=== PATIENT | male | born 1940 | race Caucasian/White ===

== ENCOUNTER 2016-07-02 11:07 | Outpatient (CLI) | payer MEDICARE, OTHER | END 2016-07-02 11:08 | disposition home or self-care (01) | DX: J43.9 Emphysema, unspecified (principal); R06.02 Shortness of breath ==

== ENCOUNTER 2016-11-06 10:33 | Outpatient (CLI) | payer MEDICARE, OTHER ==
--- NOTE | 2016-11-06 14:39 | XRAY Report ---
RIGHT HIP AND PELVIS: 11/06/2016 CLINICAL INDICATION: Persistent pain. FINDINGS: Frontal view of the hips and pelvis and frogleg lateral view of the right hip demonstrate mild osteoarthritis. There is no evidence of acute fracture or dislocation. No radiopaque foreign b sebastian is seen in the soft tissues. IMPRESSION: MILD OSTEOARTHRITIS. NO EVIDENCE OF FRACTURE. JOB #: [id number] EXT JOB #:[id number]
== END 2016-11-06 10:34 | disposition home or self-care (01) ==
LOC: DI 10:33
PROVIDERS: ATTEND Internal Medicine
DX: M16.11 Unilateral primary osteoarthritis, right hip (principal)

== ENCOUNTER 2018-03-05 08:01 | Outpatient (CLI) | payer MEDICARE, OTHER ==
--- NOTE | 2018-03-05 15:53 | Ultrasound Report ---
Reason: BLADDER-NECK OBSTRUCTION Procedure Date: 03/05/2018 Accession Number: [id number] / [id number] Procedure: US - Bladder CPT Code: FULL RESULT: EXAM: BLADDER ULTRASOUND EXAM DATE: 03/05/2018 09:08 AM. CLINICAL HISTORY: BLADDER-NECK OBSTRUCTION. Urinary frequency at night with decrease in stream force. COMPARISON: HIP W/PELVIS 2-3V RT 11/06/2016. TECHNIQUE: Real-time scanning was performed with static images obtained. FINDINGS: Bilateral jets seen. The prevoid bladder volume was 365 cc. The postvoid bladder volume was 181 cc. No bladder wall thickening or trabeculation visualized. The prostate measures approximately 4.4 x 3.8 x 3.9 cm. Other: None. IMPRESSION: 1. Post void residual measuring approximately 181 cc. 2. No bladder wall thickening, trabeculation, or other abnormality visualized. 3. Mildly enlarged prostate. RADIA
== END 2018-03-05 08:02 | disposition home or self-care (01) ==
LOC: DI 08:01
PROVIDERS: ATTEND Internal Medicine
DX: N32.0 Bladder-neck obstruction (principal); N40.0 Benign prostatic hyperplasia without lower urinary tract symptoms
CPT/HCPCS: 76857

== ENCOUNTER 2019-04-08 17:20 | Outpatient (CLI) | payer MEDICARE, OTHER | END 2019-04-08 17:21 | disposition critical access hospital (66) | LOC: EMS 17:20 | PROVIDERS: ATTEND Surgery | DX: R53.1 Weakness (principal); R46.4 Slowness and poor responsiveness | CPT/HCPCS: A0425; A0427 ==

== ENCOUNTER 2019-04-08 17:57 | Emergency (ER) | payer MEDICARE, OTHER ==
[2019-04-08] MEDS ORDERED: IPRATROPIUM/ALBUTEROL 3 ML NEB INH STA (18:07)
--- NOTE | 2019-04-08 18:11 | ED Physician Documentation ---
History of Present Illness - Stated complaint Stated Complaint: TREMORS, WEAKNESS - History obtained from History obtained from: Patient, Family, EMS - History of Present Illness Timing: Today Pain level max: 0 Pain level now: 0 - Additonal information Additional information: 78-year-old male with a history of dementia, lives at home with his . states that he has been acting differently than usual. Now complaining that he has to pee. He is normally on oxygen 24/7, 2-1/2 to 3 L. He was not on his oxygen today. No recent illnesses. No vomiting. No diarrhea or constipation. Nothing makes this better or worse Review of Systems Unable to obtain: Dementia Constitutional: denies: Fever Cardiac: denies: Chest pain / pressure Respiratory: denies: Cough GI: denies: Vomiting Skin: denies: Rash Musculoskeletal: denies: Neck pain, Back pain Neurologic: denies: Headache PD PAST MEDICAL HISTORY - Past Medical History Cardiovascular: Hypertension Respiratory: COPD Endocrine/Autoimmune: Type 1 diabetes : Benign prostate hypertrophy Psych: None Musculoskeletal: None - Past Surgical History General: Colonoscopy - Present Medications Home Medications: Ambulatory Orders Medication Instructions Recorded Confirmed Aspirin [Aspirin EC] 81 mg PO DAILY 07/01/15 02/05/16 Cetirizine [ZyrTEC] 10 mg PO DAILY 07/01/15 02/05/16 Levothyroxine [Synthroid] 112 mcg PO DAILY 07/01/15 02/05/16 Lisinopril 20 mg PO DAILY 07/01/15 02/05/16 Metformin HCl 1,000 mg PO BID 07/01/15 02/05/16 Sildenafil Citrate [Viagra] 1 tab PO ONCE 07/01/15 02/05/16 Simvastatin 20 mg PO DAILY 07/01/15 02/05/16 Tamsulosin [Flomax] 0.4 tab PO DAILY 07/01/15 02/05/16 Tiotropium [place] [Spiriva] 1 inh NS DAILY 07/01/15 02/05/16 Albuterol Sulfate [Ventolin Hfa] 1 puffs PO DAILY PRN 01/21/16 02/05/16 Fluticasone 44 Mcg [Flovent] 1 puffs PO BID 01/21/16 02/05/16 - Allergies Allergies/Adverse Reactions: Allergies Allergy/AdvReac Type Severity Reaction Status Date / Time Sulfa (Sulfonamide Allergy Rash Verified 04/08/19 18:09 Antibiotics) - Social History Does the pt smoke?: No Smoking Status: Former smoker Does the pt drink ETOH?: No Does the pt have substance abuse?: No PD ED PE NORMAL - Vitals Vital signs reviewed: Yes - General General: Other (Alert, restless) - HEENT HEENT: Moist mucous membranes, Pharynx benign - Neck Neck: Supple, no meningeal sign - Cardiac Cardiac: Other (Tachycardic) - Respiratory Respiratory: Other (Diminished breath sounds with wheezing bilaterally) - Abdomen Abdomen: Soft (Soft abdomen other than a firm lower abdomen, no tenderness that I can discern. No peritoneal signs) - Back Back: No spinal TTP - Derm Derm: Warm and dry - Extremities Extremities: No deformity, No tenderness to palpate - Neuro Neuro: No: Other (alert) Results - Vitals Vitals: Vital Signs - 24 hr 04/08/19 04/08/19 04/08/19 18:10 18:16 18:23 Temperature 36.9 C Heart Rate 130 H 136 H 143 H Respiratory 24 16 18 Rate Blood Pressure 184/108 H O2 Saturation 100 98 04/08/19 04/08/19 04/08/19 19:10 19:30 20:00 Temperature Heart Rate 130 H 125 H 124 H Respiratory 17 20 18 Rate Blood Pressure 182/98 H 172/110 H 129/80 O2 Saturation 100 100 98 04/08/19 04/08/19 04/08/19 20:30 21:00 21:30 Temperature Heart Rate 117 H 133 H 114 H Respiratory 16 16 18 Rate Blood Pressure 133/78 H 133/78 H 165/80 H O2 Saturation 100 100 94 04/08/19 04/08/19 22:00 22:30 Temperature Heart Rate 106 H 107 H Respiratory 16 18 Rate Blood Pressure 147/75 H 138/84 H O2 Saturation 95 97 Oxygen O2 Source Room air - EKG (time done) 1808 Rate: Rate (enter#) (132) Rhythm: Sinus tachycardia [place]: Normal Intervals: Normal [place] QRS: Normal Ischemia: Normal ST segments, Q waves (II, III, aVF) - Labs Labs: Laboratory Tests 04/08/19 04/08/19 04/08/19 18:00 18:20 18:20 WBC 11.9 H RBC 3.83 L Hgb 12.7 L Hct 37.4 L MCV 97.7 H MCH 33.2 H MCHC 34.0 RDW 12.9 Plt Count 239 MPV 9.3 Neut # (Auto) 10.4 H Lymph # (Auto) 1.0 L [place] # (Auto) 0.4 Eos # (Auto) 0.0 Baso # (Auto) 0.0 Absolute Nucleated RBC 0.00 Nucleated RBC % 0.0 Sodium 127 L Potassium 4.1 Chloride 90 L Carbon Dioxide 26 Anion Gap 11.0 BUN 15 Creatinine 0.8 Estimated GFR (MDRD) 93 Glucose 194 H Calcium 10.0 Total Bilirubin 0.8 AST 22 ALT 18 Alkaline Phosphatase 47 Troponin I High Sens B-Natriuretic Peptide Total Protein 7.8 Albumin 4.5 Globulin 3.3 Albumin/Globulin Ratio 1.4 Lipase 26 Urine Color YELLOW Urine Clarity CLEAR Urine pH 7.5 Ur Specific [place] 1.015 Urine Protein 30 H Urine Glucose (UA) NEGATIVE Urine Ketones TRACE Urine Occult Blood TRACE-INTA Urine Nitrite NEGATIVE Urine Bilirubin NEGATIVE Urine Urobilinogen 0.2 (NORMAL) Ur Leukocyte Esterase NEGATIVE Urine RBC 0-5 Urine WBC 0-3 Ur Squamous Epith Cells RARE Squamous Urine Bacteria Rare Ur Microscopic Review INDICATED Urine Culture Comments NOT INDICATED 04/08/19 04/08/19 18:20 18:20 WBC RBC Hgb Hct MCV MCH MCHC RDW Plt Count MPV Neut # (Auto) Lymph # (Auto) [place] # (Auto) Eos # (Auto) Baso # (Auto) Absolute Nucleated RBC Nucleated RBC % Sodium Potassium Chloride Carbon Dioxide Anion Gap BUN Creatinine Estimated GFR (MDRD) Glucose Calcium Total Bilirubin AST ALT Alkaline Phosphatase Troponin I High Sens 6.5 B-Natriuretic Peptide 38 Total Protein Albumin Globulin Albumin/Globulin Ratio Lipase Urine Color Urine Clarity Urine pH Ur Specific [place] Urine Protein Urine Glucose (UA) Urine Ketones Urine Occult Blood Urine Nitrite Urine Bilirubin Urine Urobilinogen Ur Leukocyte Esterase Urine RBC Urine WBC Ur Squamous Epith Cells Urine Bacteria Ur Microscopic Review Urine Culture Comments - Rads (name of study) head CT Radiology: Prelim report reviewed, EMP read contemporaneously, See rad report (No acute abnormality) chest xray Radiology: Prelim report reviewed, EMP read contemporaneously, See rad report (No acute abnormality) PD MEDICAL DECISION MAKING - ED course Complexity details: reviewed results, re-evaluated patient, considered differential, d/w patient, d/w family ED course: Patient with significant acute urinary retention. A Horowitz catheter was placed and approximately 2-1/2 to 3 L of urine was drained. He then had a very large bowel movement. No acute findings on head CT. He was reported to have a headache earlier in the day. No acute findings on chest x-ray. Breathing improved with nebulizer treatment and he was placed back on oxygen. He was given a small dose of Haldol and his restlessness resolved. states this is normal heart rate is 90 to low 100's. Patient appears to be at his baseline. We will have him follow-up with his doctor for further care. Patient and family counseled regarding signs and symptoms for which I believe and urgent re- evaluation would be necessary. Patient with good understanding of and agreement to plan and is comfortable going home at this time This document was made in part using voice recognition software. While efforts are made to proofread this document, sound alike and grammatical errors may occur. Departure - Departure Disposition: 01 Home, Self Care Clinical Impression: Urinary retention Condition: Good Instructions: ED Catheter Care Lor, ED Retention Urinary Male Follow-Up: Néstor Sanchez MD [Primary Care Provider] - Within 3 Days Comments: Return if you worsen. Follow-up with Dr. Sanchez for further care. He may refer you to urology. Leave the catheter in place. He should also discuss with Dr. Sanchez in his office options for when his dementia worsens and getting part-time caregivers, respite caregivers and other options before they are desperately needed. Discharge Date/Time: 04/08/19 22:41
[2019-04-08 18:24] LABS: BASOPHILS % (AUTO) 0.3 %; EOSINOPHILS % (AUTO) 0.3 %; HGB - HEMOGLOBIN 12.7 g/dL (14.0-18.0); MEAN CORPUSCULAR HEMOGLOBIN 33.2 pg (27.0-31.0); MEAN CORPUSCULAR VOLUME 97.7 fL (80.0-94.0); MEAN PLATELET VOLUME 9.3 fL (7.4-11.4); MONOCYTES # (AUTO) 0.4 10^3/uL (0.0-1.0); MONOCYTES % (AUTO) 3.2 %; NEUTROPHILS # (AUTO) 10.4 10^3/uL (1.5-6.6); NEUTROPHILS % (AUTO) 87.9 %; PLT - PLATELET COUNT 239 10^3/uL (130-450); RED BLOOD COUNT 3.83 10^6/uL (4.70-6.10); RED CELL DISTRIBUTION WIDTH 12.9 % (12.0-15.0); WHITE BLOOD COUNT 11.9 x10^3/uL (4.8-10.8)
[2019-04-08 18:28] LABS: BILIRUBIN,URINE NEGATIVE (NEGATIVE); GLUCOSE, URINE (UA) NEGATIVE (NEGATIVE); KETONES,URINE (UA) TRACE mg/dL (NEGATIVE); LEUKOCYTE ESTERASE, URINE NEGATIVE (NEGATIVE); NITRITE,URINE NEGATIVE (NEGATIVE); OCCULT BLOOD,URINE TRACE-INTA (NEGATIVE); PH,URINE 7.5 PH (5.0-7.5); PROTEIN,URINE 30 mg/dL (NEGATIVE); UROBILINOGEN,URINE 0.2 (NORMAL) E.U./dL (NORMAL)
[2019-04-08 18:36] LABS: CLARITY,URINE CLEAR (CLEAR)
[2019-04-08 18:37] LABS: ALBUMIN 4.5 g/dL (3.2-5.5); ALBUMIN/GLOBULIN RATIO 1.4 (1.0-2.2); BILIRUBIN,TOTAL 0.8 mg/dL (0.2-1.0); CREATININE 0.8 mg/dL (0.6-1.2); TOTAL PROTEIN 7.8 g/dL (6.7-8.2)
[2019-04-08 18:46] LABS: BACTERIA,URINE Rare /HPF (None Seen); RBC,URINE 0-5 /HPF (0-5); SQUAMOUS EPITHELIAL CELL,UR RARE Squamous (<= Few)
--- NOTE | 2019-04-08 19:20 | CT Report ---
Reason: ALOC Procedure Date: 04/08/2019 Accession Number: [id number] / [id number] Procedure: CT - HEAD WO CPT Code: FULL RESULT: EXAM: CT HEAD EXAM DATE: 04/08/2019 07:03 PM. CLINICAL HISTORY: ALOC. COMPARISON: HEAD W/O 07/01/2015 9:57 AM. TECHNIQUE: Multiaxial CT images were obtained from the foramen magnum to the vertex. Reformats: Sagittal and coronal. IV contrast: None. In accordance with CT protocol optimization, one or more of the following dose reduction techniques were utilized for this exam: automated exposure control, adjustment of mA and/or KV based on patient size, or use of iterative reconstructive technique. FINDINGS: Parenchyma: No intraparenchymal hemorrhage. No evidence of mass, midline shift, or CT findings of acute infarction. Butcher-white differentiation is distinct. Diffuse chronic microangiopathic white matter changes are evident. Extraaxial Spaces: Normal for age. No subdural or epidural collections identified. Ventricles: The ventricles and cortical sulci are enlarged, consistent with age-related tissue loss. Sinuses and orbits: Imaged paranasal sinuses, orbits, and mastoids show no significant abnormality. Bones: No evidence of fracture or calvarial defect. Other: None. IMPRESSION: Generalized age-related cortical atrophic changes without evidence of acute intracranial abnormality. RADIA
--- NOTE | 2019-04-08 19:28 | XRAY Report ---
Reason: Chest Pain Procedure Date: 04/08/2019 Accession Number: [id number] / [id number] Procedure: XR - Chest 1 View X-Ray CPT Code: 70099 FULL RESULT: EXAM: CHEST RADIOGRAPHY EXAM DATE: 04/08/2019 07:10 PM. CLINICAL HISTORY: Chest pain. COMPARISON: CHEST 2 VIEW PA/LAT 07/02/2016 11:35 AM. TECHNIQUE: 1 view. FINDINGS: Lungs/Pleura: The lungs are hyperinflated noting hyperlucent upper lobes. No confluent lung consolidation. No pleural effusion or pneumothorax. Mediastinum: Within exam limitations, the cardiomediastinal contour is normal. Other: None. IMPRESSION: Emphysema. No acute airspace disease. RADIA
[2019-04-08] MEDS ORDERED: SODIUM CHLORIDE 0.9% 1,000 ML IV ONE (19:56)
[2019-04-08] MEDS ORDERED: HALOPERIDOL 5 MG/ML VIAL IVP STA (21:10)
[2019-04-08 22:39] VITALS: BP 138/84
== END 2019-04-08 22:41 | disposition home or self-care (01) ==
LOC: EDUNIT# → ED 17:57
DX: R33.9 Retention of urine, unspecified (principal); R53.1 Weakness; R00.0 Tachycardia, unspecified; R45.1 Restlessness and agitation; R51 Headache; F03.90 Unspecified dementia, unspecified severity, without behavioral disturbance, psychotic disturbance, mood disturbance, and anxiety; J44.9 Chronic obstructive pulmonary disease, unspecified; Z87.891 Personal history of nicotine dependence; I10 Essential (primary) hypertension; E10.9 Type 1 diabetes mellitus without complications; Z79.82 Long term (current) use of aspirin
CPT/HCPCS: 36415; 51702; 70450; 71045; 80053; 81001; 81003; 83690; 83880; 84484; 85025; 87086; 93005; 94640; 96361; 96374; 99284

== ENCOUNTER 2019-07-06 09:27 | Outpatient (CLI) | payer MEDICARE, OTHER ==
--- NOTE | 2019-07-06 10:19 | XRAY Report ---
Reason: PAIN IN THORACIC SINE Procedure Date: 07/06/2019 Accession Number: [id number] / [id number] Procedure: XRS - Thoracic Spine 2 View CPT Code: Final Report FULL RESULT: EXAM: THORACIC SPINE RADIOGRAPHY EXAM DATE: 07/06/2019 09:57 AM. CLINICAL HISTORY: PAIN IN THORACIC SINE. COMPARISON: CHEST 2 VIEW 07/06/2019 9:53 AM XR CHEST PA AND LAT 06/08/2012 4:25 PM. TECHNIQUE: 2 views. FINDINGS: Alignment: Normal. No spondylolisthesis or scoliosis. Bones: Mild wedging T11 Disks: Scattered small osteophytes. Soft Tissues: Honeycombing. IMPRESSION: Mild DJD Mild wedging T11 RADIA
--- NOTE | 2019-07-06 10:22 | XRAY Report ---
Reason: COUGH Procedure Date: 07/06/2019 Accession Number: [id number] / [id number] Procedure: XRS - Chest 2 View X-Ray CPT Code: 23179 Final Report FULL RESULT: EXAM: CHEST RADIOGRAPHY EXAM DATE: 07/06/2019 09:57 AM. CLINICAL HISTORY: COUGH. COMPARISON: CHEST 1 VIEW 04/08/2019 7:00 PM CHEST 12/14/2008 11:08 AM. TECHNIQUE: 2 views. FINDINGS: Lungs/Pleura: Possible nodular density projected over the right anterior fifth rib where it crosses over a posterior rib . Pulmonary fibrosis, peripheral honeycombing, bronchiectasis. Areas of scarring or atelectasis bilaterally. Hyperlucent hyperinflated lung yoo. Mediastinum: Heart and mediastinal contours are unremarkable. Other: None. IMPRESSION: 1. Pulmonary fibrosis. COPD 2. Possible right lung nodule. Recommend CT scan RADIA
== END 2019-07-06 09:28 | disposition home or self-care (01) ==
LOC: DI.S 09:27
PROVIDERS: ATTEND Registered Nurse
DX: M47.814 Spondylosis without myelopathy or radiculopathy, thoracic region (principal); M48.54XA Collapsed vertebra, not elsewhere classified, thoracic region, initial encounter for fracture; J44.9 Chronic obstructive pulmonary disease, unspecified; J84.10 Pulmonary fibrosis, unspecified
CPT/HCPCS: 71046; 72070

== ENCOUNTER 2019-07-10 10:43 | Outpatient (CLI) | payer MEDICARE, OTHER ==
--- NOTE | 2019-07-11 12:48 | CT Report ---
Reason: SOLITARY PULMONARY NODULE Procedure Date: 07/10/2019 Accession Number: [id number] / [id number] Procedure: CT - CHEST WO CPT Code: Final Report FULL RESULT: EXAM: CT CHEST EXAM DATE: 07/10/2019 11:15 AM. CLINICAL HISTORY: Solitary pulmonary nodule. COMPARISONS: CHEST 2 VIEW 07/06/2019 9:53 AM. TECHNIQUE: Routine helical CT imaging was performed through the chest. IV contrast: None. Reconstructions: Coronal and sagittal. In accordance with CT protocol optimization, one or more of the following dose reduction techniques were utilized for this exam: automated exposure control, adjustment of mA and/or KV based on patient size, or use of iterative reconstructive technique. FINDINGS: Lungs/Pleura: Advanced emphysematous changes throughout both lungs. Extensive bilateral bullous changes. No pneumothorax. There are multiple linear lucencies lateral right midlung compatible with scarring corresponding to the asymmetric density on recent chest x-ray. Elongated right basilar pulmonary calcinosis. Mild bilateral bronchial wall thickening with areas of mucus plugging. Mediastinum: No cardiomegaly or bulky mediastinal adenopathy. Moderate coronary arterial calcifications. Trace pericardial effusion. Bones: Elongated exostosis in between posterior right fifth and sixth ribs on coronal image 74. Small inferolateral right fifth rib exostosis on coronal image 30. Visualized Abdomen: Stomach is distended with fluid and ingested contents. Prominent hepatic flexure still partially imaged. Other: None. IMPRESSION: 1. Advanced emphysema with extensive bullous changes. Bilateral bronchial wall thickening may be related to bronchitis. 2. Asymmetric lateral right mid chest density on recent chest x-ray corresponds to areas of linear scarring. 3. No lung mass or suspicious lung nodule. 4. Trace pericardial effusion. RADIA
== END 2019-07-10 10:44 | disposition home or self-care (01) ==
LOC: DI 10:43
PROVIDERS: ATTEND Registered Nurse
DX: J43.9 Emphysema, unspecified (principal); J90 Pleural effusion, not elsewhere classified
CPT/HCPCS: 71250

== ENCOUNTER 2019-07-13 07:00 | Outpatient (CLI) | payer MEDICARE, OTHER ==
[2019-07-13 18:45] LABS: BASOPHILS % (AUTO) 0.3 %; EOSINOPHILS # (AUTO) 0.2 10^3/uL (0.0-0.7); EOSINOPHILS % (AUTO) 2.4 %; HGB - HEMOGLOBIN 11.5 g/dL (14.0-18.0); LYMPHOCYTES # (AUTO) 1.7 10^3/uL (1.5-3.5); LYMPHOCYTES % (AUTO) 16.5 %; MEAN CORPUSCULAR HEMOGLOBIN 32.9 pg (27.0-31.0); MEAN CORPUSCULAR HGB CONC 32.5 g/dL (32.0-36.0); MEAN CORPUSCULAR VOLUME 101.1 fL (80.0-94.0); MEAN PLATELET VOLUME 10.2 fL (7.4-11.4); MONOCYTES # (AUTO) 0.7 10^3/uL (0.0-1.0); MONOCYTES % (AUTO) 6.5 %; NEUTROPHILS # (AUTO) 7.4 10^3/uL (1.5-6.6); PLT - PLATELET COUNT 245 10^3/uL (130-450); RED CELL DISTRIBUTION WIDTH 13.3 % (12.0-15.0)
[2019-07-13 18:46] LABS: ALBUMIN 4.3 g/dL (3.2-5.5); ALBUMIN/GLOBULIN RATIO 1.6 (1.0-2.2); BILIRUBIN,TOTAL 0.4 mg/dL (0.2-1.0); CALCIUM 10.4 mg/dL (8.5-10.3); CREATININE 0.7 mg/dL (0.6-1.2)
== END 2019-07-13 23:59 | disposition home or self-care (01) ==
LOC: LAB.S 07:00
PROVIDERS: ATTEND Registered Nurse
DX: R53.83 Other fatigue (principal); J20.9 Acute bronchitis, unspecified
CPT/HCPCS: 36415; 80053; 85025

== ENCOUNTER 2019-07-21 10:25 | Outpatient (CLI) | payer MEDICARE, OTHER ==
[2019-07-21 17:45] LABS: BASOPHILS % (AUTO) 0.3 %; EOSINOPHILS # (AUTO) 0.3 10^3/uL (0.0-0.7); EOSINOPHILS % (AUTO) 2.9 %; HGB - HEMOGLOBIN 11.6 g/dL (14.0-18.0); LYMPHOCYTES # (AUTO) 1.5 10^3/uL (1.5-3.5); LYMPHOCYTES % (AUTO) 15.6 %; MEAN CORPUSCULAR HGB CONC 32.5 g/dL (32.0-36.0); MEAN CORPUSCULAR VOLUME 101.4 fL (80.0-94.0); MEAN PLATELET VOLUME 10.1 fL (7.4-11.4); MONOCYTES # (AUTO) 0.7 10^3/uL (0.0-1.0); MONOCYTES % (AUTO) 7.1 %; NEUTROPHILS # (AUTO) 6.9 10^3/uL (1.5-6.6); NEUTROPHILS % (AUTO) 73.7 %; PLT - PLATELET COUNT 233 10^3/uL (130-450); RED BLOOD COUNT 3.52 10^6/uL (4.70-6.10); RED CELL DISTRIBUTION WIDTH 13.6 % (12.0-15.0); WHITE BLOOD COUNT 9.3 x10^3/uL (4.8-10.8)
[2019-07-21 18:36] LABS: ALBUMIN 4.2 g/dL (3.2-5.5); ALBUMIN/GLOBULIN RATIO 1.6 (1.0-2.2); BILIRUBIN,TOTAL 0.6 mg/dL (0.2-1.0); CALCIUM 10.4 mg/dL (8.5-10.3); CREATININE 0.9 mg/dL (0.6-1.2); TOTAL PROTEIN 6.8 g/dL (6.7-8.2)
== END 2019-07-21 10:26 | disposition home or self-care (01) ==
LOC: LAB.S 10:25
PROVIDERS: ATTEND Registered Nurse
DX: J20.9 Acute bronchitis, unspecified (principal); D64.9 Anemia, unspecified
CPT/HCPCS: 36415; 80053; 82607; 82746; 83540; 84466; 85025

== ENCOUNTER 2020-10-14 16:42 | Outpatient (CLI) | payer MEDICARE, OTHER | END 2020-10-14 16:43 | disposition home or self-care (01) | LOC: COV 16:42 | PROVIDERS: ATTEND Dermatology MOHS-Micrographic Surgery | DX: Z01.812 Encounter for preprocedural laboratory examination (principal); Z20.822 Contact with and (suspected) exposure to COVID-19 ==

== ENCOUNTER 2020-10-24 11:21 | Emergency (ER) | payer MEDICARE, OTHER ==
[2020-10-24 11:46] LABS: BASOPHILS % (AUTO) 0.3 %; EOSINOPHILS # (AUTO) 0.2 10^3/uL (0.0-0.7); EOSINOPHILS % (AUTO) 1.8 %; HGB - HEMOGLOBIN 11.7 g/dL (14.0-18.0); LYMPHOCYTES # (AUTO) 0.9 10^3/uL (1.5-3.5); LYMPHOCYTES % (AUTO) 8.1 %; MEAN CORPUSCULAR HEMOGLOBIN 33.5 pg (27.0-31.0); MEAN CORPUSCULAR HGB CONC 34.4 g/dL (32.0-36.0); MEAN CORPUSCULAR VOLUME 97.4 fL (80.0-94.0); MEAN PLATELET VOLUME 9.2 fL (7.4-11.4); MONOCYTES # (AUTO) 0.8 10^3/uL (0.0-1.0); NEUTROPHILS # (AUTO) 9.6 10^3/uL (1.5-6.6); NEUTROPHILS % (AUTO) 82.5 %; PLT - PLATELET COUNT 237 10^3/uL (130-450); RED BLOOD COUNT 3.49 10^6/uL (4.70-6.10); RED CELL DISTRIBUTION WIDTH 13.2 % (12.0-15.0); WHITE BLOOD COUNT 11.6 x10^3/uL (4.8-10.8)
--- NOTE | 2020-10-24 11:59 | XRAY Report ---
PROCEDURE: Chest 1 View X-Ray INDICATIONS: Chest Pain TECHNIQUE: One view of the chest was acquired. COMPARISON: Chest radiographs 07/22/2019. CT chest 07/10/2019. FINDINGS: Surgical changes and devices: None. Lungs and pleura: The lungs are hyperexpanded with severe emphysematous changes bilaterally. No pleu ral effusion or pneumothorax. Mediastinum: Mediastinal contours appear normal. Heart size is normal. Mild aortic atherosclerotic calcifications. Bones and chest wall: No suspicious bony lesions. Overlying soft tissues appear unremarkable. IMPRESSION: Severe emphysematous changes. No acute cardiopulmonary abnormality identified. Reviewed by: Martir Orellana MD on 10/24/2020 11:57 AM PDT Approved by: Martir Orellana MD on 10/24/2020 11:57 AM PDT Station ID: [id number]
[2020-10-24 12:09] LABS: ALBUMIN 4.5 g/dL (3.2-5.5); ALBUMIN/GLOBULIN RATIO 1.5 (1.0-2.2); BILIRUBIN,TOTAL 0.5 mg/dL (0.2-1.0); CALCIUM 10.7 mg/dL (8.5-10.3); CREATININE 0.8 mg/dL (0.6-1.2); POTASSIUM 4.5 mmol/L (3.5-5.0); TOTAL PROTEIN 7.6 g/dL (6.7-8.2)
[2020-10-24 12:11] LABS: INR 1.1 (0.8-1.2); PT - PROTHROMBIN TIME 12.1 secs (9.9-12.6)
--- NOTE | 2020-10-24 12:48 | ED Physician Documentation ---
PD HPI CHEST PAIN - Stated complaint Stated Complaint: CHEST PX - Chief complaint Chief Complaint: Cardiac - History obtained from History obtained from: Patient - Additional information Additional information: Patient comes emergency department after being sent by the walk-in clinic for chief complaint of chest tightness. Patient states that he had a fairly busy day yesterday and that throughout the night, he noticed a sensation of tightness in his chest. Patient states it was worth worse with deep breaths or certain positions. He states he did not feel bad in any other way. He has fairly se elo COPD at baseline, but states this has not been any worse than usual. No increased cough or fever. No nausea or vomiting. Patient states that there is no worsening of the tightness in particular with exertion. Patient was seen at the walk-in clinic where they noted what appeared to be some Q waves and were concerned so sent patient over. Patient does note that he has been taking Afrin and Zyrtec, do seem to some allergy related congestion and that his doctor recently had him decrease the frequency of both of these medications. He states that it has been a little bit harder to breathe because of that that otherwise, he has been able to do the things he usually does. No other complaints at this time. Review of Systems Ten Systems: 10 systems reviewed and negative Constitutional: reports: Reviewed and negative Eyes: reports: Reviewed and negative Ears: reports: Reviewed and negative Nose: reports: Reviewed and negative Throat: reports: Reviewed and negative Cardiac: reports: Chest pain / pressure Respiratory: reports: Reviewed and negative GI: reports: Reviewed and negative : reports: Reviewed and negative Skin: reports: Reviewed and negative Musculoskeletal: reports: Reviewed and negative Neurologic: reports: Reviewed and negative Psychiatric: reports: Reviewed and negative Endocrine: reports: Reviewed and negative Immunocompromised: reports: Reviewed and negative PD PAST MEDICAL HISTORY - Past Medical History Cardiovascular: Hypertension, High cholesterol Respiratory: COPD Neuro: Tremors Endocrine/Autoimmune: Type 2 diabetes, HyPOthyroidism : Benign prostate hypertrophy Psych: None Musculoskeletal: None - Past Surgical History Past Surgical History: Yes General: Colonoscopy, Other (Inguinal hernia) - Present Medications Home Medications: Ambulatory Orders Medication Instructions Recorded Confirmed Aspirin [Aspirin EC] 81 mg PO DAILY 07/01/15 10/24/20 Levothyroxine [Synthroid] 112 mcg PO QDAC 07/01/15 10/24/20 Lisinopril 40 mg PO DAILY 07/01/15 10/24/20 Tamsulosin [Flomax] 0.4 tab PO BID 07/01/15 10/24/20 Albuterol Sulfate [Ventolin Hfa] 2 puffs INH Q4H PRN 01/21/16 10/24/20 Insulin Aspart [Novolog] 4 unit SUBQ QDAC 07/22/19 10/24/20 Insulin Glargine [Lantus Solostar] 14 units SUBQ QPM 07/22/19 10/24/20 Loratadine 10 mg PO DAILY 07/23/19 10/24/20 Tiotropium Br/Olodaterol HCl 2 puffs INH DAILY 07/23/19 10/24/20 [Stiolto Respimat Inhal [place]] amLODIPine [Norvasc] 5 mg PO DAILY #10 tablet 07/24/19 10/24/20 - Allergies Allergies/Adverse Reactions: Allergies Allergy/AdvReac Type Severity Reaction Status Date / Time Sulfa (Sulfonamide Allergy Rash Verified 10/24/20 11:37 Antibiotics) - Social History Does the pt smoke?: No Smoking Status: Former smoker Does the pt drink ETOH?: No Does the pt have substance abuse?: No - Immunizations Immunizations are current?: Yes - POLST Patient has POLST: No POLST Status: Full Code PD ED PE NORMAL - Vitals Vital signs reviewed: Yes - General General: Alert and oriented X 3, No acute distress, Well developed/nourished - HEENT HEENT: Atraumatic, PERRL, EOMI, Moist mucous membranes - Neck Neck: Supple, no meningeal sign - Cardiac Cardiac: No murmur, Strong equal pulses, Other (Mildly tachycardic, regular.) - Respiratory Respiratory: No respiratory distress, Clear bilaterally - Abdomen Abdomen: Soft, Non tender, Non distended - Derm Derm: Normal color, Warm and dry, No rash - Extremities Extremities: No deformity, No edema, No calf tenderness / cord - Neuro Neuro: Alert and oriented X 3, 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, Normal speech - Psych Psych: Normal mood, Normal affect Results - Vitals Vitals: Vital Signs - 24 hr 10/24/20 11:29 Temperature 36.7 C Heart Rate 102 H Respiratory 22 Rate Blood Pressure 148/86 H O2 Saturation 100 Oxygen O2 Source Nasal cannula Oxygen Flow Rate 3 - Labs Labs: Laboratory Tests 10/24/20 10/24/20 10/24/20 11:35 11:35 11:35 WBC 11.6 H RBC 3.49 L Hgb 11.7 L Hct 34.0 L MCV 97.4 H MCH 33.5 H MCHC 34.4 RDW 13.2 Plt Count 237 MPV 9.2 Neut # (Auto) 9.6 H Lymph # (Auto) 0.9 L [place] # (Auto) 0.8 Eos # (Auto) 0.2 Baso # (Auto) 0.0 Absolute Nucleated RBC 0.00 Nucleated RBC % 0.0 PT 12.1 INR 1.1 Sodium 131 L Potassium 4.5 Chloride 93 L Carbon Dioxide 29 Anion Gap 9.0 BUN 20 Creatinine 0.8 Estimated GFR (MDRD) 93 Glucose 147 H Calcium 10.7 H Total Bilirubin 0.5 AST 23 ALT 17 Alkaline Phosphatase 67 Troponin I High Sens B-Natriuretic Peptide Total Protein 7.6 Albumin 4.5 Globulin 3.1 Albumin/Globulin Ratio 1.5 Lipase 21 L 10/24/20 10/24/20 11:35 11:35 WBC RBC Hgb Hct MCV MCH MCHC RDW Plt Count MPV Neut # (Auto) Lymph # (Auto) [place] # (Auto) Eos # (Auto) Baso # (Auto) Absolute Nucleated RBC Nucleated RBC % PT INR Sodium Potassium Chloride Carbon Dioxide Anion Gap BUN Creatinine Estimated GFR (MDRD) Glucose Calcium Total Bilirubin AST ALT Alkaline Phosphatase Troponin I High Sens 3.8 B-Natriuretic Peptide 22 Total Protein Albumin Globulin Albumin/Globulin Ratio Lipase PD MEDICAL DECISION MAKING - ED course Complexity details: reviewed results, re-evaluated patient, considered differential, d/w patient ED course: Patient was worked up for his chest tightness in the emergency department with labs, chest x-ray, and EKG, none of which showed any acute findings. The patient was extremely well-appearing, and without complaints in the emergency department. He had noted that during his busy day yesterday, he drank almost no water, which is not his usual. However, he declined IV fluids in the emergency department and stated he would rather just drink at home and continue on with his day. I felt that at this point in time, given that the patient had had the chest tightness for well over 12 hours, that he could be discharged home without a second troponin as his first troponin was completely negative. We have discussed home management of the symptoms, as well as the usual indications for return. Departure - Departure Disposition: 01 Home, Self Care Clinical Impression: Chest pain Qualifiers: Chest pain type: unspecified Qualified Code(s): R07.9 - Chest pain, unspecified Condition: Stable Instructions: ED Chest Pain NonCardiac Comments: Your labs, chest x-ray, and EKG do not show any evidence of an emergent condition today. Considering your baseline, your vital signs also look good. Please be sure to drink plenty of water when you get home. You may follow-up as planned for your scheduled appointments regarding your skin cancer removal.
[2020-10-24 14:17] VITALS: BP 143/82
== END 2020-10-24 13:05 | disposition home or self-care (01) ==
LOC: ED 11:21
DX: R07.9 Chest pain, unspecified (principal); I10 Essential (primary) hypertension; E11.9 Type 2 diabetes mellitus without complications; Z79.4 Long term (current) use of insulin
CPT/HCPCS: 36415; 80053; 83690; 83880; 84484; 85025; 85610; 93005; 99284; 99285

== ENCOUNTER 2020-11-29 08:10 | Outpatient (CLI) | payer MEDICARE, OTHER | END 2020-11-29 23:59 | disposition home or self-care (01) | LOC: COV 08:10 | PROVIDERS: ATTEND Dermatology MOHS-Micrographic Surgery | DX: Z01.812 Encounter for preprocedural laboratory examination (principal); Z20.822 Contact with and (suspected) exposure to COVID-19 ==

== ENCOUNTER 2021-06-20 17:03 | Outpatient (CLI) | payer MEDICARE, OTHER | END 2021-06-20 17:04 | disposition EMS.NT | LOC: EMS 17:03 | DX: R00.0 Tachycardia, unspecified (principal); F41.9 Anxiety disorder, unspecified ==

== ENCOUNTER 2022-07-28 15:06 | Outpatient (CLI) | payer MEDICARE, OTHER ==
--- NOTE | 2022-07-28 16:40 | DEXA Report ---
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 Regions measur ed are the AP Spine, femoral neck, and if needed forearm. COMPARISON: None. FINDINGS: Lumbar Spine: Bone Mineral Density 1.086 g/cm/cm,T score -1.2, osteopenia Left Femoral Neck: Bone Mineral Density 0.644 g/cm/cm, T score -3.3, osteoporosis Left Hip: Bone Mineral Density 0.661 g/cm/cm,T score -3.1, osteoporosis Impression: Osteoporosis. Patients with diagnosis of osteoporosis or osteopenia should have regular bone mineral density assess ment. For those eligible for Medicare, routine testing is allowed once every 2 years. Testing frequ ency can be increased for patients who have rapidly progressing disease or for those who are receivin g medical therapy to restore bone mass. Reviewed by: Ezio Fierro MD on 07/28/2022 4:38 PM PST Approved by: Ezio Fierro MD on 07/28/2022 4:38 PM PST Station ID: [id number]
== END 2022-07-28 15:07 | disposition home or self-care (01) ==
LOC: DI 15:06
PROVIDERS: ATTEND Internal Medicine
DX: M81.0 Age-related osteoporosis without current pathological fracture (principal); Z79.51 Long term (current) use of inhaled steroids

== ENCOUNTER 2023-04-23 10:34 | Outpatient (CLI) | payer MEDICARE, OTHER | END 2023-04-23 10:35 | disposition short-term general hospital (02) | LOC: EMS 10:34 | DX: M25.552 Pain in left hip (principal); W18.30XA Fall on same level, unspecified, initial encounter; Y92.019 Unspecified place in single-family (private) house as the place of occurrence of the external cause; J44.9 Chronic obstructive pulmonary disease, unspecified; Z99.81 Dependence on supplemental oxygen | CPT/HCPCS: A0425; A0429 ==

== ENCOUNTER 2023-11-06 13:54 | Outpatient (CLI) | payer MEDICARE, OTHER ==
--- NOTE | 2023-11-06 16:10 | XRAY Report ---
PROCEDURE: Ribs w/PA Chest 3+V LT INDICATIONS: RIB PAIN, LEFT SIDED TECHNIQUE: 2 views of the ribs were acquired, along with a single view chest. COMPARISON: None. FINDINGS: Surgical changes and devices: None. Bones and chest wall: No fractures or dislocations. No suspicious bony lesions. Overlying soft tis sues appear unremarkable. Lungs and pleura: No pleural effusions or pneumothorax. Lungs appear clear. Moderate interstitial m arkings most prominent at the bibasilar regions likely reflecting scarring and/or interstitial lung d isease Mediastinum: Mediastinal contours appear normal. Heart size is normal. IMPRESSION: No displaced rib fracture or pneumothorax. Reviewed by: Casimiro Fierro MD on 11/06/2023 3:09 PM JOVAN Approved by: Casimiro Fierro MD on 11/06/2023 3:09 PM JOVAN Station ID: [id number]
== END 2023-11-06 13:55 | disposition home or self-care (01) ==
LOC: DI 13:54
PROVIDERS: ATTEND Registered Nurse
DX: R07.81 Pleurodynia (principal)

== ENCOUNTER 2024-02-25 09:03 | Emergency (ER) | payer MEDICARE, OTHER ==
--- NOTE | 2024-02-25 10:56 | XRAY Report ---
PROCEDURE: Chest 1V INDICATIONS: hemoptysis TECHNIQUE: One view of the chest was acquired. COMPARISON: None. FINDINGS: Surgical changes and devices: None. Lungs and pleura: No pleural effusions or pneumothorax. Lungs are clear. Chronic interstitial gonzalez es, right greater than left history Mediastinum: Mediastinal contours appear normal. Heart size is normal. Bones and chest wall: No suspicious bony lesions. Overlying soft tissues appear unremarkable. IMPRESSION: Chronic interstitial changes. No focal acute infiltrates. Reviewed by: Arturo Rodriguez MD on 02/25/2024 10:55 AM PDT Approved by: Arturo Rodriguez MD on 02/25/2024 10:55 AM PDT Station ID: [id number]
--- NOTE | 2024-02-25 11:12 | ED Physician Documentation ---
History of Present Illness - Stated complaint Stated Complaint: COUGHING UP BLOOD - Chief complaint Chief Complaint: Resp - History obtained from History obtained from: Patient, Family - Additonal information Additional information: The patient comes to the emergency department chief complaint of hemoptysis that started this morning. He was coughing more than usual last night and when he woke up this morning, he felt as though he had some phlegm to cough up. However, he noticed that it was uniformly red. The patient went through several rounds of coughing and his states that he brought up about 1/4 cup of bloody sputum. This is around 6:00 this morning and the patient has not had any further coughing or blood since. He has not felt ill recently. He has severe COPD and is on 2 and half liters of oxygen [id number]. He has not been requiring any further oxygen than he usually uses and states he did not feel any more short of breath than usual. He denies taking any anticoagulants other than a baby aspirin. He sees a insulation worker interior surface regularly and is scheduled to see the pulmonology nurse practitioner next week. He had some blood-tinged sputum a couple of months ago and his insulation worker interior surface put him on steroid and antibiotic. The patient states he is otherwise feeling at baseline. No chest pain. No other complaints at this time. PD PAST MEDICAL HISTORY - Past Medical History Cardiovascular: Hypertension, High cholesterol Respiratory: COPD Neuro: Tremors Endocrine/Autoimmune: Type 2 diabetes, HyPOthyroidism : Benign prostate hypertrophy Psych: None Musculoskeletal: None - Past Surgical History Past Surgical History: Yes General: Colonoscopy, Other - Present Medications Home Medications: Ambulatory Orders Medication Instructions Recorded Confirmed Aspirin [Aspirin EC] 81 mg PO DAILY 07/01/15 10/24/20 Levothyroxine [Synthroid] 112 mcg PO QDAC 07/01/15 10/24/20 Lisinopril 40 mg PO DAILY 07/01/15 10/24/20 Tamsulosin [Flomax] 0.4 tab PO BID 07/01/15 10/24/20 Albuterol Sulfate [Ventolin Hfa] 2 puffs INH Q4H PRN 01/21/16 10/24/20 Insulin Aspart [Novolog] 4 unit SUBQ QDAC 07/22/19 10/24/20 Insulin Glargine [Lantus Solostar] 14 units SUBQ QPM 07/22/19 10/24/20 Loratadine 10 mg PO DAILY 07/23/19 10/24/20 Tiotropium Br/Olodaterol HCl 2 puffs INH DAILY 07/23/19 10/24/20 [Stiolto Respimat Inhaler (60)] amLODIPine [Norvasc] 5 mg PO DAILY #10 tablet 07/24/19 10/24/20 - Allergies Allergies/Adverse Reactions: Allergies Allergy/AdvReac Type Severity Reaction Status Date / Time Sulfa (Sulfonamide Allergy Rash Verified 02/25/24 09:26 Antibiotics) - Social History Does the pt smoke?: No Smoking Status: Never smoker Does the pt drink ETOH?: No Does the pt have substance abuse?: No - Immunizations Immunizations are current?: Yes - POLST Patient has POLST: No POLST Status: Full Code PD ED PE NORMAL - Vitals Vital signs reviewed: Yes - General General: Alert and oriented X 3, No acute distress, Other (Thin, elderly, appears chronically ill but in no apparent distress, sitting up on the edge of the bed.) - HEENT HEENT: Atraumatic, EOMI, Moist mucous membranes - Neck Neck: Supple, no meningeal sign - Cardiac Cardiac: RRR, No murmur, Strong equal pulses - Respiratory Respiratory: No respiratory distress, Clear bilaterally - Derm Derm: Normal color, Warm and dry, No rash - Extremities Extremities: No deformity, No edema - Neuro Neuro: Other (Alert, answers questions appropriately.) - Psych Psych: Normal mood, Normal affect Results - Vitals Vitals: Vital Signs - 24 hr 02/25/24 09:23 Temperature 36.7 C Heart Rate 95 Respiratory 20 Rate Blood Pressure 158/75 H O2 Saturation 94 Oxygen O2 Source Nasal cannula - Rads (name of study) Chest x-ray Relevant Findings:: Final report received, See rad report (Chronic interstitial changes, but no focal acute infiltrates.) PD Medical Decision Making - ED course Complexity details: reviewed results, re-evaluated patient, considered differential, d/w patient, d/w family ED course: Chest x-ray was performed and showed no acute findings that the patient did have some chronic lung markings. I discussed with the patient and his that most likely, he had some superficial mucosal bleeding from the extra coughing last night that collected while he was laying down at night. This is probably why he coughed up a bunch of sputum, including some blood, when he first got up this morning but has not had anything since. The patient is not on anticoagulants and is hemodynamically stable. He does not have ongoing hemoptysis and is otherwise feeling fairly well. He does not have pneumonia on chest x-ray and at this point, I feel that the patient can go home with watchful waiting. The and patient are agreeable to this plan. He will be seeing his pulmonology nurse practitioner next week and this should help provide some direction as well. We have discussed the need for return, should he begin having significant increase in hemoptysis. Departure - Departure Disposition: Home, Self Care Clinical Impression: Hemoptysis Condition: Stable Instructions: ED Hemoptysis Comments: Your chest x-ray actually looks pretty good. As we have discussed, it may be that the extra coughing last night caused you to rough up the mucous membranes lining your airways a little bit and that while you are laying down, some blood pooled with the phlegm. This is probably why you initially coughed up some bloody phlegm this morning but have not really had any output since. Generally, these sorts of superficial bleeds heal quickly on their own if you are not on heavy-duty blood thinners, which it sounds like you are not. For now, you may plan to follow-up with your nurse practitioner in pulmonology, as you are currently scheduled to do in 6 days. If you have some coughing at night and a little bloody sputum in the morning but then seems to resolve throughout the day, this is probably okay and not too much to be worried about. However, if you begin to cough up heavy amounts of blood throughout the day and night and it seems to be getting worse, then you will need more urgent pulmonology evaluation and possibly, may need to go to the emergency department. Forms: PCP List
[2024-02-25 11:31] VITALS: BP 176/83; O2SAT 100
== END 2024-02-25 11:28 | disposition home or self-care (01) ==
LOC: ED 09:03
DX: R04.2 Hemoptysis (principal); J44.9 Chronic obstructive pulmonary disease, unspecified; Z99.81 Dependence on supplemental oxygen
CPT/HCPCS: 99283

== ENCOUNTER 2024-03-15 08:44 | Outpatient (CLI) | payer MEDICARE, OTHER ==
--- NOTE | 2024-03-16 12:39 | CT Report ---
PROCEDURE: Chest WO INDICATIONS: EMPHYSEMA TECHNIQUE: A CT scan of the chest was performed. Intravenous contrast media was not administered. Images were re corded and evaluated at appropriate window settings. Reformats: axial MIP of the chest, coronal and s agittal. For radiation dose reduction, the following was used: automated exposure control, adjustment of mA and/or kV according to patient size. COMPARISON: Chest radiograph 02/25/[address] 07/10/2019. FINDINGS: Image quality: Images are mildly degraded by respiratory motion. Diagnostic information is obtained. Chest wall and lower neck: No thyroid nodule which requires sonographic follow up. No axillary or sup raclavicular adenopathy by size. Lungs and pleura: Advanced destructive emphysema. Mild peripheral reticulations with calcifications a t the right lung base. No suspicious new or enlarging pulmonary nodule. No consolidation. No pleural effusions. No pneumothorax. Mediastinum: Heart size is normal. No pericardial effusion. Moderate to severe coronary calcification s. No large vessel abnormality. No mediastinal adenopathy by size criteria. Bones: No aggressive osseous abnormality. Mild compression deformity at T11 is new when compared to t CT from 07/10/2019. No surrounding edema or acute fracture line is seen. Upper Abdomen: Unremarkable. IMPRESSION: 1.Advanced destructive emphysema. 2.No new or suspicious pulmonary nodule. 3.Moderate to severe coronary calcifications. 4.Age indeterminate mild T11 compression fracture, new when compared to the remote CT from 07/10/2019. Reviewed by: Martir Orellana MD on 03/16/2024 12:38 PM PDT Approved by: Martir Orellana MD on 03/16/2024 12:38 PM PDT Station ID: [id number]
== END 2024-03-15 08:45 | disposition home or self-care (01) ==
LOC: DI 08:44
PROVIDERS: ATTEND Nurse Practitioner Family
DX: J43.8 Other emphysema (principal); I25.10 Atherosclerotic heart disease of native coronary artery without angina pectoris; M48.54XA Collapsed vertebra, not elsewhere classified, thoracic region, initial encounter for fracture